=== PATIENT | male | born 1980 | race African-American/Black ===

== ENCOUNTER 2021-05-20 23:41 | Emergency (ER) | payer OTHER ==
[~2021-05-20] VITALS: Ht 182.9 cm; Wt 91.0 kg
[2021-05-21] MEDS ORDERED: ACETAMINOPHEN 325MG TABLET PO ONE (00:15)
[2021-05-21] MEDS ORDERED: TRAMADOL 50MG TABLET PO ONE (00:15)
[2021-05-21] MEDS ORDERED: METH-773 MT (02:59)
[2021-05-21] MEDS ORDERED: IBUP-2029 MT (02:59)
[2021-05-21 03:00] VITALS: BP 128/78
== END 2021-05-21 03:15 | disposition home or self-care (01) ==
LOC: ER 23:41
DX: S06.9X0A Unspecified intracranial injury without loss of consciousness, initial encounter (principal); S16.1XXA Strain of muscle, fascia and tendon at neck level, initial encounter; S50.12XA Contusion of left forearm, initial encounter; M25.512 Pain in left shoulder; M25.532 Pain in left wrist; G89.11 Acute pain due to trauma; V49.49XA Driver injured in collision with other motor vehicles in traffic accident, initial encounter; Y93.89 Activity, other specified; Y92.488 Other paved roadways as the place of occurrence of the external cause
CPT/HCPCS: 73030; 73090; 73110; 99285; A4565